=== PATIENT | female | born 1960 | race Caucasian/White ===

== ENCOUNTER 2018-02-04 11:51 | Day surgery (SDC) | payer OTHER ==
[~2018-02-04 11:51] MED LIST: CEFAZOLIN 1 GM INJ
[2018-02-04] MEDS ORDERED: GLYCOPYRROLATE 0.4 MG INJ (14:23)
[2018-02-04] MEDS ORDERED: NEOSTIGMINE 3 MG/3 ML SYRINGE (14:23)
[2018-02-04] MEDS ORDERED: PROPOFOL 20 ML (14:23)
[2018-02-04] MEDS ORDERED: MIDAZOLAM 1 MG/ML 2 ML INJ (14:23)
[2018-02-04] MEDS ORDERED: ROCURONIUM 50 MG INJ (14:23)
[2018-02-04] MEDS ORDERED: FENTAnyl 50 MCG/ML VIAL (14:23)
[2018-02-04] MEDS ORDERED: LIDOCAINE 2% (SDV) 5 ML INJ (14:23)
[2018-02-04] MEDS ORDERED: DEXAMETHASONE 4 MG/ML 1 ML INJ (14:24)
[2018-02-04] MEDS ORDERED: ONDANSETRON 4 MG INJ (14:24)
[2018-02-04] MEDS ORDERED: MIDAZOLAM 1 MG/ML 2 ML INJ IV (15:30)
[2018-02-04] MEDS ORDERED: FENTAnyl 50 MCG/ML VIAL IV ×2 (15:30)
[2018-02-04] MEDS ORDERED: ATROPINE 1 MG/10 ML SYRINGE IV (15:30)
[2018-02-04] MEDS ORDERED: HYDROmorphONE 1 MG/5 ML IV SYRINGE IV ×2 (15:30)
[2018-02-04] MEDS ORDERED: morphine (1 MG/ML) 10ML SYRINGE IV ×3 (15:30)
[2018-02-04] MEDS ORDERED: MEPERIDINE 25 MG INJ IV (15:30)
[2018-02-04] MEDS ORDERED: LABETALOL HCL 20MG INJ IV (15:30)
[2018-02-04] MEDS ORDERED: OXYCODONE/ACETAMINOPHEN (5/325) TAB PO (15:30)
[2018-02-04] MEDS ORDERED: EPHEDrine SULFATE 50 MG/5 ML SYG IV (15:30)
[2018-02-04] MEDS ORDERED: hydrALAzine 20 MG INJ IV (15:30)
[2018-02-04] MEDS ORDERED: ACETAMINOPHEN 325 MG TAB PO (16:00)
[2018-02-04] MEDS: ONDANSETRON 4 MG INJ IV (16:01)
[2018-02-04] MEDS: DIPHENHYDRAMINE 50 MG INJ IV (16:04)
[2018-02-04] MEDS: HYDROmorphONE 1 MG/5 ML IV SYRINGE IV (16:27)
[2018-02-04] MEDS: OXYCODONE/ACETAMINOPHEN (5/325) TAB PO (17:27)
== END 2018-02-05 17:49 | disposition home or self-care (01) ==
LOC: SDS 11:51
DX: D25.9 Leiomyoma of uterus, unspecified (principal); N95.0 Postmenopausal bleeding
CPT/HCPCS: 58558; 84703; 86850; 86900; 86901; 88305

== ENCOUNTER 2018-12-09 10:45 | Day surgery (SDC) | payer OTHER ==
[2018-12-09] MEDS ORDERED: PROPOFOL 200 MG INJ (14:00)
[2018-12-09] MEDS ORDERED: LIDOCAINE 2% (SDV) 5 ML INJ (14:07)
[2018-12-09] MEDS ORDERED: LIDOCAINE 4% SOLUTION 50 ML BTL (14:07)
[2018-12-09] MEDS ORDERED: MIDAZOLAM 1 MG/ML 2 ML INJ (14:07)
[2018-12-09] MEDS ORDERED: FENTAnyl 50 MCG/ML VIAL (14:07)
[2018-12-09] MEDS ORDERED: ETOMIDATE 20 MG INJ (14:08)
== END 2018-12-09 15:47 | disposition home or self-care (01) ==
LOC: GIL 10:45
DX: Z12.11 Encounter for screening for malignant neoplasm of colon (principal); K29.50 Unspecified chronic gastritis without bleeding; B96.81 Helicobacter pylori [H. pylori] as the cause of diseases classified elsewhere; K64.8 Other hemorrhoids
CPT/HCPCS: 43239; 88305; 88312